=== PATIENT | male | born 1945 ===

== ENCOUNTER 2020-04-08 10:38 | Outpatient (CLI) | payer SELFPAY | END 2020-04-08 10:39 | disposition EMS.NT | LOC: EMS 10:38 | PROVIDERS: ATTEND Surgery | DX: S00.81XA Abrasion of other part of head, initial encounter (principal); S40.812A Abrasion of left upper arm, initial encounter; S40.811A Abrasion of right upper arm, initial encounter; S80.812A Abrasion, left lower leg, initial encounter; S80.811A Abrasion, right lower leg, initial encounter; W17.81XA Fall down embankment (hill), initial encounter; Y93.H2 Activity, gardening and landscaping; Y92.007 Garden or yard of unspecified non-institutional (private) residence as the place of occurrence of the external cause ==